=== PATIENT | female | born 1985 | race Caucasian/White ===

== ENCOUNTER 2020-01-02 14:03 | Outpatient (CLI) | payer OTHER | END 2020-01-02 14:04 | disposition home or self-care (01) | LOC: COV 14:03 | PROVIDERS: ATTEND Family Medicine | DX: R05 Cough (principal) ==

== ENCOUNTER 2020-01-03 17:14 | Emergency (ER) | payer OTHER ==
[2020-01-03] MEDS ORDERED: MAGNESIUM SULFATE 2 GRAM 2 GM/50 ML BAG IV ONE (17:44)
[2020-01-03] MEDS ORDERED: SODIUM CHLORIDE 0.9% 500 ML IV ONE (17:44)
--- NOTE | 2020-01-03 17:48 | ED Physician Documentation ---
History of Present Illness - Stated complaint Stated Complaint: C+ SOA, CP - Chief complaint Chief Complaint: Resp - History obtained from History obtained from: Patient - History of Present Illness Timing: Yesterday Pain level max: 3 Pain level now: 1 - Additonal information Additional information: 34-year-old female presents to the emergency department stating that She has had palpitations for the past 2 days. She states she has a history of an arrhythmia in the past, but does not know what arrhythmia. She states that only occurred when she was . She states that she tested positive for coronavirus yesterday. She states she is not feeling short of breath. Does occasionally have burning type chest pain. Nonradiating. Nothing makes this better or worse. She called her doctor about the palpitations and was told to come to the emergency department. She is not , breast-feeding or trying to become . Review of Systems Ten Systems: 10 systems reviewed and negative Constitutional: reports: Fever (Had fevers a few days ago, none now). denies: Chills Respiratory: reports: Cough GI: denies: Vomiting, Diarrhea : denies: Dysuria, Frequency, Hesitancy, Now EGA Skin: denies: Rash Musculoskeletal: denies: Neck pain, Back pain Neurologic: denies: Headache PD PAST MEDICAL HISTORY - Past Medical History Past Medical History: Yes - Present Medications Home Medications: Ambulatory Orders Medication Instructions Recorded Confirmed No Known Home Medications 01/03/20 01/03/20 - Allergies Allergies/Adverse Reactions: Allergies Allergy/AdvReac Type Severity Reaction Status Date / Time No Known Drug Allergies Allergy Verified 01/03/20 17:43 - Living Situation Living Situation: reports: With family Living Arrangement: reports: At home - Social History Does the pt smoke?: No Does the pt drink ETOH?: Yes Does the pt have substance abuse?: No PD ED PE NORMAL - Vitals Vital signs reviewed: Yes - General General: Alert and oriented X 3, No acute distress, Well developed/nourished - HEENT HEENT: PERRL, Ears normal, Moist mucous membranes, Pharynx benign - Neck Neck: Supple, no meningeal sign - Cardiac Cardiac: RRR, No murmur, Strong equal pulses - Respiratory Respiratory: No respiratory distress, Clear bilaterally - Abdomen Abdomen: Soft, Non tender, Non distended - Derm Derm: Warm and dry, No rash - Extremities Extremities: No edema, No calf tenderness / cord - Neuro Neuro: Alert and oriented X 3 - Psych Psych: Normal mood, Normal affect Results - Vitals Vitals: Vital Signs - 24 hr 01/03/20 01/03/20 01/03/20 17:32 18:37 19:08 Temperature 36.8 C 36.3 C L Heart Rate 86 88 76 Respiratory 16 18 18 Rate Blood Pressure 127/70 112/76 112/76 O2 Saturation 99 98 99 Oxygen O2 Source Room air - EKG (time done) 1724 Rate: Rate (enter#) (70) Rhythm: NSR, Other (PAC, PVC) [place]: Normal Intervals: Normal ND QRS: Normal Ischemia: Normal ST segments - Labs Labs: Laboratory Tests 01/03/20 01/03/20 17:25 17:25 WBC 9.4 RBC 4.22 Hgb 13.6 Hct 41.8 MCV 99.1 H MCH 32.2 H MCHC 32.5 RDW 13.6 Plt Count 292 MPV 10.4 Neut # (Auto) 6.0 Lymph # (Auto) 2.5 [place] # (Auto) 0.8 Eos # (Auto) 0.1 Baso # (Auto) 0.1 Absolute Nucleated RBC 0.00 Nucleated RBC % 0.0 Sodium 137 Potassium 3.4 L Chloride 106 Carbon Dioxide 23 Anion Gap 8.0 BUN 12 Creatinine 0.7 Estimated GFR (MDRD) 95 Glucose 90 Calcium 8.9 Phosphorus 2.9 Magnesium 2.0 Total Bilirubin 0.6 AST 19 ALT 14 Alkaline Phosphatase 52 Total Protein 7.3 Albumin 4.3 Globulin 3.0 Albumin/Globulin Ratio 1.4 Lipase 42 PD MEDICAL DECISION MAKING - ED course Complexity details: reviewed results, re-evaluated patient, considered differential, d/w patient ED course: 34-year-old female with palpitations. She is found to have premature atrial contractions and premature ventricular contractions on EKG and telemetry monitoring. These symptoms decreased with IV fluids and magnesium. She feels much better. She would like to go home at this time. Patient is well- appearing, nontoxic. Ambulating without difficulty. No hypoxia. No evidence of pulmonary embolus. Patient counseled regarding signs and symptoms for which I believe and urgent re-evaluation would be necessary. Patient with good understanding of and agreement to plan and is comfortable going home at this time This document was made in part using voice recognition software. While efforts are made to proofread this document, sound alike and grammatical errors may occur. Departure - Departure Disposition: 01 Home, Self Care Clinical Impression: Premature atrial contractions, Premature ventricular contractions Condition: Good Instructions: ED Palpitations Follow-Up: Your,doctor in 1 week [Other] Comments: Return if you worsen. Follow-up with your doctor for further care.Magnesium tonight. Return if you develop shortness of breath, worsening palpitations or you pass out, or any other new or worsening symptoms. Discharge Date/Time: 01/03/20 19:08
[2020-01-03 17:53] LABS: BASOPHILS # (AUTO) 0.1 10^3/uL (0.0-0.1); BASOPHILS % (AUTO) 0.5 %; EOSINOPHILS # (AUTO) 0.1 10^3/uL (0.0-0.7); EOSINOPHILS % (AUTO) 0.7 %; HGB - HEMOGLOBIN 13.6 g/dL (12.0-16.0); LYMPHOCYTES # (AUTO) 2.5 10^3/uL (1.5-3.5); LYMPHOCYTES % (AUTO) 26.5 %; MEAN CORPUSCULAR HEMOGLOBIN 32.2 pg (27.0-31.0); MEAN CORPUSCULAR HGB CONC 32.5 g/dL (32.0-36.0); MEAN CORPUSCULAR VOLUME 99.1 fL (81.0-99.0); MEAN PLATELET VOLUME 10.4 fL (7.9-10.8); MONOCYTES # (AUTO) 0.8 10^3/uL (0.0-1.0); MONOCYTES % (AUTO) 8.5 %; NEUTROPHILS % (AUTO) 63.6 %; PLT - PLATELET COUNT 292 10^3/uL (130-450); RED BLOOD COUNT 4.22 10^6/uL (4.20-5.40); RED CELL DISTRIBUTION WIDTH 13.6 % (12.0-15.0); WHITE BLOOD COUNT 9.4 x10^3/uL (4.8-10.8)
[2020-01-03 18:28] LABS: ALBUMIN 4.3 g/dL (3.2-5.5); ALBUMIN/GLOBULIN RATIO 1.4 (1.0-2.2); BILIRUBIN,TOTAL 0.6 mg/dL (0.2-1.0); CALCIUM 8.9 mg/dL (8.5-10.3); CREATININE 0.7 mg/dL (0.4-1.0); PHOSPHORUS 2.9 mg/dL (2.5-4.6); TOTAL PROTEIN 7.3 g/dL (6.7-8.2)
[2020-01-03 18:37] VITALS: BP 112/76
== END 2020-01-03 19:08 | disposition home or self-care (01) ==
LOC: ED 17:14
DX: I49.1 Atrial premature depolarization (principal); I49.3 Ventricular premature depolarization
CPT/HCPCS: 36415; 80053; 83690; 83735; 84100; 85025; 93005; 96365; 99283